=== PATIENT | female | born 1995 | race Caucasian/White ===

== ENCOUNTER 2017-03-29 11:20 | Emergency (ER) | payer OTHER ==
[2017-03-29 11:31] VITALS: BP 121/81; BMI 39.1
--- NOTE | 2017-03-29 11:47 | DR.EARACHE ---
HPI - Time Seen Time seen: 11:45 - PCP Primary Care Physician: NONE - HPI Comment HPI Comment: WORSE TODAY. NO FEVER.POSITINE DRAINAGE. - Complaint/Symptoms Chief Complaint Doctor Comments: LT EAR PAIN, SWELLING AND DRAINAGE TIMES FEW DAYS. Chief Complaint:: LEFT EAR PAIN AND DRAINAGE. Self Treatment fo Chief Complaint: TAKING AMOXIL AND DOESNT RECALL DOSEAGE WITH ZYRTEC - Nurses notes reviewed Nurses Notes Review: Yes - Source History Provided: Patient - Mode of arrival Mode of Arrival: Ambulatory - Timing Onset of Chief Complaint: 03/25/17 Came on: Gradually - Duration Duration: Constant Duration: Days - Location Location: Left - Severity Severity: Moderate - Context Context: Spontaneously Developed - Associated signs and symptoms Associated signs and symptoms: Discharge, Sore throat, Runny nose. denies: Fever, Chills, Toothache PMH - PMH Past Medical History: No Past Surgical History: Yes Surgical History: Tonsillectomy Past Surgical History Comment: EAR TUBES - Family History History of Family Medical Conditions: Yes Family Medical History: Diabetes Mellitus, Cancer, [place], Coronary Artery Disease, Hypertension - Social History Type of Tobacco Use: None Does any household member use tobacco: No Alcohol Use: None Do you use any recreational Drugs:: No Lives With: Family Lives Where: Home - infectious screening In the last 2 months have you had wt loss of >10#?: NO Have you had fever, night sweats or hemotysis?: No Have you traveled outside the country in the last 6 months?: No Isolation: Standard ROS - Review of Systems Constitutional: No Symptoms Reported Eyes: No Symptoms Reported ENTM: Ear Pain (LT EAR.), Ear Discharge (LT EAR). negative: Nose Discharge, Nose Congestion, Throat Pain Respiratoy: No Symptoms Reported. negative: Productive Cough, Non-Productive Cough, Short of Breath, Wheezing Gastrointestinal/Abdominal: No Symptoms Reported. negative: Abdominal Pain, Vomiting, Food Intolerance Genitourinary: No Symptoms Reported. negative: Dysuria, Frequency, Hematuria Neurological: No Symptoms Reported. negative: Headache, Weakness, Dizziness Musculoskeletal: Muscle Pain Integumentary: Change in Color Hematologic/Lymphatic: No Symptoms Reported Endocrine: No Symptoms Reported All Other Systems: Reviewed and Negative PE - Vitals Vitals: Temperature 98.1 F Pulse Rate 74 Respiratory Rate 16 Blood Pressure 121/81 O2 Sat by Pulse Oximetry 100 - General Limitations: No Limitations General Appearance: Alert - Head Head Exam: Normal Inspection - Eyes Eye exam: Normal Appearance - ENT ENT Exam: Normal Oropharynx. negative: Normal External Ear Exam (SWOLLEN RED LT EAR CANAL.), TM's Normal Bilaterally (TM LT NOT VISUALIZE. RT RM INTACT.) External Ear Exam: negative: Normal External Inspection (INFLAME LT EXTERNAL EAR.) TM/Canal Exam: Left Canal Drainage, Left Canal Tenderness Nose Exam: Normal Nose Exam Mouth Exam: Normal Inspection Throat Exam: Normal Inspection - Neck Neck Exam Focused: Normal Inspection - Chest Chest Inspection: Normal Inspection, Tenderness - Respiratory Respiratory Exam: Normal Lung Sounds Bilat Respiratory Exam: Bilateral Clear to Auscultation - Cardiovascular Cardiovascular Exam: Regular Rate, Normal Rhythm, Normal Heart Sounds - Abdominal Exam Abdominal Exam: Normal Bowel Sounds, Soft. negative: Tenderness - Extremities Extremities Exam: Normal Inspection - Back Back Exam: Normal Inspection - Neurological Neurological Exam: Alert, Oriented X3 - Skin Skin Exam: Erythema (SKIN AROUND LT EAR SWOLLEN, RED AND TENDER.) MDM - Differential Diagnosis External Auditory Canal: Otitis externa Tympanic membrane: Otitis media Referred pain: Pharyngitis, Sinusitis, TMJ syndrome Course - Treatment Treatment: SEE ORDERS. - Education/Counseling Education/Counseling: Patient, Education Educated On: Treatment, Diagnosis, Needs for Follow Up ROR - XRAY XRAY Findings: REPORT DISCUSS WITH PATIENT. - Diagnosis Discharge Problem: Otitis media Qualifiers: Otitis media type: unspecified nonsuppurative Laterality: left Qualified Code(s ): H65.92 - Unspecified nonsuppurative otitis media, left ear Cellulitis Qualifiers: Site of cellulitis: other site Qualified Code(s): L03.818 - Cellulitis of other sites Otitis external Qualifiers: Otitis externa type: diffuse Chronicity: acute Laterality: right Qualified Code (s): H60.311 - Diffuse otitis externa, right ear - Discharge Plan Disposition: HOME, SELF-CARE Condition: Stable Prescriptions: Amoxicillin/Potassium Clav [Augmentin Xr 1,000-62.5 Tab] 1 tab PO Q12H #20 tab.sr Hlvytooz-Prrhtknkf-Pd (Otic) [Cortisporin Otic Susp] 4 drop AFF EAR TID #1 ea Tramadol HCl 50 mg PO Q8H PRN #20 tablet PRN Reason: - Follow ups/Referrals Follow ups/Referrals: NFD,None [Primary Care Provider] - 3 days - Instructions Instructions: Ear Drainage, [id number], Otitis Media, Adult, Icyk-[id number], Cellulitis, Adult, [id number] Additional Instructions: return to ed if worse.
--- NOTE | 2017-03-29 13:07 | RAD ---
HISTORY: 21-year-old female with numbness to the left face and ear for 3-4 days. Study: Four views of the facial bones. Comparison: None. Findings: Paranasal sinuses, mastoid air cells and tympanic cavities are clear without fluid levels. No radiogr aphic evidence of facial or calvarial fracture. Airway is patent. Imaged cervical spine is unremarkab le. Soft tissues are unremarkable. IMPRESSION: Negative screening examination of the facial bones, indicated study for evaluation of mastoiditis wou ld be CT temporal bones. Reported By:
== END 2017-03-29 13:39 | disposition home or self-care (01) ==
LOC: ER 11:39
DX: H65.92 Unspecified nonsuppurative otitis media, left ear (principal); L03.818 Cellulitis of other sites; H60.311 Diffuse otitis externa, right ear
CPT/HCPCS: 70150; 99282

== ENCOUNTER 2017-10-21 10:47 | Emergency (ER) | payer OTHER ==
[2017-10-21 10:52] VITALS: BMI 39.9
[2017-10-21 11:23] LABS: BILIRUBIN,URINE NEGATIVE (NEGATIVE); BLOOD/HEMOGLOBIN,URINE 1+ (NEGATIVE); GLUCOSE, URINE NEGATIVE (NEGATIVE); KETONES,URINE NEGATIVE (NEGATIVE); LEUKOCYTE ESTERASE ,URINE 2+ (NEGATIVE); NITRITES,URINE NEGATIVE (NEGATIVE); PROTEIN,URINE 1+ (NEGATIVE); UROBILINOGEN,URINE NORMAL (NORMAL)
--- NOTE | 2017-10-21 11:30 | DR.PREG ---
HPI - Time seen Time seen: 11:15 - PCP Primary Care Physician: ROSARIO - Chief Complaint Chief Complaint Doctors Comments: I agree with history as stated Chief Complaint:: 24 WEEK OB C/O VAGINAL PRESSURE AND TIGHTNESS TO ABDOMEN WHICH BEGAN LAST NIGHT. PAIN IS INTERMITTENT. PT. STATES SHE FEELS THE URGE TO PUSH WHEN SHE EXPERIENCES THE VAGINAL PRESSURE. PT. DENIES VAGINAL BLEEDING OR FLUID LEAKAGE. . EDC: 02/02/18 - Source History Provided: Patient - Mode of Arrival Mode of Arrival: Ambulatory - Timing Onset of Chief Complaint: 10/20/17 PMH - PMH Past Medical History: No Past Surgical History: Yes Surgical History: Other Past Surgical History Comment: TUBES IN EARS - Family History History of Family Medical Conditions: Yes Family Medical History: Diabetes Mellitus, Cancer, [place], Coronary Artery Disease, Hypertension - Social History Does patient currently use any type of tobacco product: No Have you used tobacco products in the last 12 months: No Type of Tobacco Use: None Does any household member use tobacco: No Alcohol Use: None Do you use any recreational Drugs:: No Lives With: Spouse Lives Where: Home - infectious screening In the last 2 months have you had wt loss of >10#?: NO Have you had fever, night sweats or hemotysis?: No Have you traveled outside the country in the last 6 months?: No Isolation: Standard ROS - Review of Systems Eyes: No Symptoms Reported Respiratoy: No Symptoms Reported Cardiovascular: No Symptoms Reported Gastrointestinal/Abdominal: No Symptoms Reported Genitourinary: No Symptoms Reported Neurological: No Symptoms Reported Musculoskeletal: No Symptoms Reported Integumentary: No Symptoms Reported Hematologic/Lymphatic: No Symptoms Reported Endocrine: No Symptoms Reported Psychiatric: No Symptoms Reported All Other Systems: Reviewed and Negative PE - Vital Signs Vitals: Temperature 98.7 F Pulse Rate 119 Respiratory Rate 18 Blood Pressure 138/75 O2 Sat by Pulse Oximetry 98 - General General Appearance: Alert, In No Apparent Distress - Head Head Exam: Normal Inspection, Atraumatic - Eyes Eye exam: Normal Appearance, PERRL, EOMI - ENT ENT Exam: Normal Exam - Neck Neck Exam: Normal Inspection, Full ROM - Chest Chest Inspection: Normal Inspection - Respiratory Respiratory Exam: Normal Lung Sounds Bilat Respiratory Exam: Bilateral Clear to Auscultation - Cardiovascular Cardiovascular Exam: Regular Rate - Abdominal Exam Abdominal Exam: Normal Inspection, Other (gravid uterus) Abdominal Tenderness: Suprapubic - Exam Type: N/A Contractions: Moderate (Per OB) - Back Back Exam: Normal Inspection - Extremeties Extremities Exam: Normal Inspection, Full ROM - Neurologic Neurological Exam: Alert, Oriented X3, CN II-XII Intact - Psychiatric Psychiatric Exam: Normal Affect - Skin Skin Exam: Warm, Dry, Normal Color (Per OB exam patient is actively way[place] ; her OB will be contacted for transport) Course - Consultation Consultation Comments: OB contacted, her exam revealed patient is wayne. We will contact her OB Dr Mason for disposition. ROR - Labs Reviewed Laboratory: Specimen Type Clean catch urine 10/21/17 11:09 Urine Color Yellow (YELLOW) 10/21/17 11:09 Urine Appearance Hazy (CLEAR) 10/21/17 11:09 Urine pH 5.0 (5.0 - 8.0) 10/21/17 11:09 Ur Specific [place] 1.025 (1.000-1.030) 10/21/17 11:09 Urine Protein 1+ (NEGATIVE) 10/21/17 11:09 Urine Glucose (UA) Negative (NEGATIVE) 10/21/17 11:09 Urine Ketones Negative (NEGATIVE) 10/21/17 11:09 Urine Occult Blood 1+ (NEGATIVE) 10/21/17 11:09 Urine Nitrite Negative (NEGATIVE) 10/21/17 11:09 Urine Bilirubin Negative (NEGATIVE) 10/21/17 11:09 Urine Urobilinogen Normal (NORMAL) 10/21/17 11:09 Ur Leukocyte Esterase 2+ (NEGATIVE) 10/21/17 11:09 Urine RBC 3-5 /HPF (NONE SEEN) 10/21/17 11:09 Urine WBC 3-5 /HPF (NONE SEEN) 10/21/17 11:09 Ur Squamous Epith Cells Few /HPF (NEGATIVE) 10/21/17 11:09 Amorphous Sediment Trace /HPF (NEGATIVE) 10/21/17 11:09 Urine Bacteria Trace /HPF (NEGATIVE) 10/21/17 11:09 Urine Mucus Few /HPF (NEGATIVE) 10/21/17 11:09 Ur Culture Indicated? No/not indicated 10/21/17 11:09 - Diagnosis Discharge Problem: Premature labor Qualifiers: labor trimester: unspecified labor trimester labor delivery status: with term delivery Fetus number: single or unspecified fetus Qualified Code(s): O60.20X0 - Term delivery with labor, unspecified trimester, not applicable or unspecified - Discharge Plan Condition: Stable - Follow ups/Referrals Follow ups/Referrals: Eli Gann MD [Primary Care Provider] - 3 days - Instructions
[2017-10-21 11:31] LABS: APPEARANCE,URINE HAZY (CLEAR); BACTERIA,URINE TRACE /HPF (NEGATIVE); COLOR,URINE YELLOW (YELLOW); SQUAMOUS EPITHELIAL CELL,UR FEW /HPF (NEGATIVE)
[2017-10-21 11:32] LABS: AMORPHOUS SEDIMENT,UR TRACE /HPF (NEGATIVE); MUCUS,URINE FEW /HPF (NEGATIVE)
[2017-10-21] MEDS ORDERED: NS 1000 ML 1,000 ML ONE ×2 (12:37→13:25)
[2017-10-21] MEDS ORDERED: NS 1000 ML 1,000 ML IV ONE (12:40)
[2017-10-21 13:03] VITALS: BP 131/76
== END 2017-10-21 13:41 | disposition short-term general hospital (02) ==
LOC: ER 10:59
DX: O60.20X0 Term delivery with preterm labor, unspecified trimester, not applicable or unspecified (principal); Z3A.25 25 weeks gestation of pregnancy
CPT/HCPCS: 36415; 81001; 84702; 96365; 99283; 99285; A4222